=== PATIENT | female | born 1980 | race Caucasian/White ===

== ENCOUNTER 2018-08-30 05:58 | Emergency (ER) | payer SELFPAY ==
[~2018-08-30] VITALS: Ht 160 cm; Wt 60.0 kg
[2018-08-30 06:03] VITALS: BP 114/73; TEMP 97.3
[2018-08-30] MEDS ORDERED: FLEXERIL 1010 MG/TAB PO (06:17)
[2018-08-30 06:40] VITALS: PULSE 68
== END 2018-08-30 06:40 | disposition home or self-care (01) ==
LOC: COL.ER 05:58
DX: M54.5 Low back pain (principal)

== ENCOUNTER 2024-02-13 14:02 | Emergency (ER) | payer BC ==
[~2024-02-13] VITALS: Ht 160 cm; Wt 65.9 kg
[~2024-02-13 14:02] MED LIST: FLEXERIL 1010 MG/TAB PO
[2024-02-13 14:07] VITALS: TEMP 98.1
[2024-02-13 14:47] LABS: BASO % 0.5 % (0.0-2.0); EOS # 0.1 K/mm3 (0.0-0.7); EOS % 1.8 % (0.0-4.0); GRAN # 3.4 K/mm3 (1.4-6.5); GRAN % 62.4 % (42.2-75.2); HEMATOCRIT 39.9 % (37.0-47.0); HEMOGLOBIN 13.6 g/dl (12.5-16.0); LYMPH # 1.5 K/mm3 (1.2-3.4); LYMPH % 27.7 % (20.0-51.0); MEAN CELL VOLUME 86 fl (80.0-100.0); MEAN CORPUSCULAR HEMOGLOBIN 29 pg (27-31); MEAN CORPUSCULAR HGB CONC 34 g/dl (33.0-37.0); MEAN PLATELET VOLUME 9.9 fl (7.4-10.4); MONO # 0.4 K/mm3 (0.1-0.6); MONO % 6.9 % (1.7-9.3); PLATELET COUNT 308 K/mm3 (130-400); RED BLOOD COUNT 4.62 M/mm3 (4.10-5.30); REDCELL DISTRIBUTION WIDTH-CV 13.2 % (11.5-14.5)
[2024-02-13 14:58] LABS: ALANINE AMINOTRANSFERASE 21 U/L (0-55); ALBUMIN 3.7 g/dL (3.5-5.0); ALKALINE PHOSPHATASE 60 U/L (40-150); ANION GAP 9 mmol/L (7-16); AST,SGOT 21 U/L (5-34); BILIRUBIN,TOTAL 0.3 mg/dL (0.2-1.2); BLOOD UREA NITROGEN 14 mg/dL (7-19); C-REACTIVE PROTEIN 0.07 mg/dL (0.00-0.50); CALCIUM 9.4 mg/dL (8.4-10.2); CHLORIDE 106 mEq/L (98-107); GLUCOSE 96 mg/dL (70-99); POTASSIUM 3.8 mEq/L (3.5-4.5); SODIUM 140 mEq/L (136-145); TOTAL PROTEIN 6.9 g/dl (6.2-8.1)
[2024-02-13 15:23] LABS: TROPONIN-I < 0.010 ng/mL (0.00-0.033)
[2024-02-13] MEDS ORDERED: PREDNISONE20 MG PO (15:43)
[2024-02-13] MEDS ORDERED: CEFTIN 250250 MG/TAB PO (15:43)
[2024-02-13 15:50] VITALS: BP 115/75; PULSE 76
[2024-02-13] MEDS ORDERED: Cefuroxime 250 MG TAB PO ONE (16:00)
[2024-02-13] MEDS ORDERED: predniSONE 20 MG TAB PO ONE (16:00)
== END 2024-02-13 15:58 | disposition home or self-care (01) ==
LOC: COL.ER 14:02
PROVIDERS: Family Medicine
DX: J20.9 Acute bronchitis, unspecified (principal)